=== PATIENT | male | born 1980 | race Caucasian/White ===

== ENCOUNTER 2020-10-20 11:43 | Emergency (ER) | payer OTHER, SELFPAY ==
[2020-10-20] VITALS (43 sets, daily range): BP systolic 100–140; BP diastolic 53–87; PULSE 65–95; RESP 11–25; TEMP 36.7; O2SAT 94–100
--- NOTE | 2020-10-20 11:45 | DI.RAD_ITS ---
EXAM: XR CHEST 2V PA LATERAL CLINICAL HISTORY: Chest pain TECHNIQUE: 2D digital imaging was performed. COMPARISON: No exams were available for comparison FINDINGS: The heart is not enlarged. The lungs are clear and well expanded. No pleural effusion seen. Mediastin al contours appear intact. IMPRESSION: Normal chest. RADIATION DOSE DELIVERED: Total DLP
--- NOTE | 2020-10-20 11:45 | RT.EKG_ITS ---
APPROVED REPORT Exam: Resting ECG Patient Location: E HR:76 bpm ECG Measurements Heart Rate 76 AXIS IA 160 P 23 QRSd 87 QRS 21 QT 362 T 18 QTc 408 Conclusion Sinus rhythm...normal P axis, V-rate 60- 99
--- NOTE | 2020-10-20 12:01 | W.ED.GENAD ---
Discharge Plan Disposition Patient Disposition: HOME Condition: Stable Discharge Details Clinical Impression: Chest pain Primary Care Provider: Unknown,Unknown ED Provider: Johnna Whyte Home Meds and New Rx's Prescriptions: No Action No Known Home Meds RF: 0 Discharge Instructions Instructions: Chest Pain (ED) Additional Instructions: Follow up with primary care provider in 3-5 days. Return to ED sooner if any worsening or concerns. Increase oral fluids. Please take Tylenol or Ibuprofen with food every 4-6 hours as needed for pain and swelling. You may consider taking a chewable baby aspirin daily. You are placed on a care management follow-up list to establish primary care provider they can help you get established and be seen within the next week. Please return to the ER for any worsening chest pain, shortness of breath or any concerns. Discharge Data Discharge Date/Time-TO BE ENTERED AT DEPARTURE: 10/20/20 15:50 Medical Decision Making 40-year-old male presents to the ER chief complaint of left-sided chest pain which began last night. He reports approximately 3-minute episode while sitting at a computer, and then resolved this morning again had another episode of 3 minutes of chest pain followed by some numbness and tingling into his arms and hands. He has no chest pain upon initial exam. He reports heart disease with his paternal grandfather who at age 52. He denies any other family history of heart disease. He is a non-smoker. He denies any illicit drug or alcohol. He does report coming off of a medication which was prescribed by his psychiatrist called kyra for anxiety and his blood pressure last taken on Monday. He denies any other past medical history or medications. Cardiac work-up ordered at this time including serial troponins, chest x-ray 324 mg chewable baby aspirin. Discussed plan of care. EXAM: XR CHEST 2V PA LATERAL CLINICAL HISTORY: Chest pain TECHNIQUE: 2D digital imaging was performed. COMPARISON: No exams were available for comparison FINDINGS: The heart is not enlarged. The lungs are clear and well expanded. No pleural effusion seen. Mediastinal contours appear intact. IMPRESSION: Normal chest. At this time initial work-up is largely within normal limits. Troponin is less than 0.05, patient has no more complaints of chest pain has not had any further episodes while here in department. He does report some tingling in his left arm and hand, however the BP cuff is on that arm, and he is using his cell phone while in room. 1337: Discussed initial work-up with patient who verbalizes understanding. At this time work-up is negative. Shared decision making discussed regarding waiting for the serial troponin patient opted to forego this at this time. I will place him on the care management list for PCP establishment, and order an outpatient stress test. 1400: Verifying with front desk associate that patient would not need a prior approval with insurance for outpatient stress test, this is unable to be verified at this time. Patient does not have an established PCP so I did explain to him that I would feel more comfortable doing the 3-hour troponin and repeat EKG prior to being discharged, he verbalizes understanding and is willing to wait at this point. 1520: Second serial troponin is within normal limits EKG is unchanged patient continues to be chest pain-free during stay. Patient placed on care management list for establishment of primary care provider. Instructed to take a baby aspirin chewable aspirin daily. Verbalizes understanding. Discussed strict return instructions, verbalized understanding. This text was generated using [employer] system, please disregard any oddities of phrase or misspellings. HPI General Mode of arrival: ambulatory. Date/Time Provider Initiated Documentation: 10/20/20 11:46. Limitations to Documentation: no limitations. Information obtained by: patient. HPI Narrative: 40-year-old male presents to the ER chief complaint of left-sided chest pain which began last night. He reports approximately 3-minute episode while sitting at a computer, and then resolved this morning again had another episode of 3 minutes of chest pain followed by some numbness and tingling into his arms and hands. He has no chest pain upon initial exam. He reports heart disease with his paternal grandfather who at age 52. He denies any other family history of heart disease. He is a non-smoker. He denies any illicit drug or alcohol. He does report coming off of a medication which was prescribed by his psychiatrist called kyra for anxiety and his blood pressure last taken on Monday. He denies any other past medical history or medications. Related Data Home Medications Medication Instructions Recorded Confirmed Unknown [No Known Home Meds] 10/20/20 10/20/20 Allergies Allergy/AdvReac Type Severity Reaction Status Date / Time No Known Allergies Allergy Unverified 10/20/20 12:01 General Stated Complaint: Chest Pain CHAU: 2 Review of Systems Narrative: Constitutional: Negative for weight loss, alert and oriented, well groomed, normal body habitus, appears comfortable. HEENT: Denies trauma, headaches, blurry vision, nasal discharge, sore throat, trouble swallowing. Chest: Denies palpitations, irregular rhythm, reports left-sided chest pain which lasted for approximately 3 to 4 minutes. Respiratory: Denies Shortness of breath, cough, hemoptysis. GI: Denies abdominal pain, nausea, vomiting, diarrhea, constipation. : Denies dysuria, hematuria, flank pain, rectal bleeding. Neuro: Denies blurry vision, weakness, syncope, headache or facial numbness. Reports some dizziness with chest pain which has resolved. He also endorses hand and arm tingling which is not new. Hematologic: Denies easy bruising, intolerance to heat or cold, hair loss. FORMERLY [facility], 1928–1983 Social History Smoking/Tobacco Use Status: Never Smoking risk assessment performed?: Yes Substance use type: does not use Exam Narrative Exam Narrative: Constitutional: Alert and oriented x3. Appears stated age. Normal body habitus. Head: Normocephalic, no trauma. Eyes: Pupils PERRLA, Red reflex noted, EOM's intact. Eyelids symmetrical without lesions, discharge, or swelling. ENT: External ear normal to inspection. Chest: Normal sinus rhythm, no ectopy. Resp: Lungs clear to auscultation bilaterally, no wheezes, rales, or rhonchi. Musculoskeletal: Normal gait, 5/5 strength to all four extremities. Skin: No suspicious rashes or lesions. Capillary refill less than 2 sec. Neurologic: Cranial nerves II-XII intact. Alert and oriented x 3. DTR's intact. Hematologic/Lymphatic: No ecchymosis, no lymphadenopathy. Course Vital Signs Vital signs: Vital Signs Temperature 36.7 C 10/20/20 11:54 Pulse 81 10/20/20 11:54 Respiratory Rate 16 10/20/20 11:54 Blood Pressure 140/81 10/20/20 11:54 Pulse Oximetry 97 10/20/20 11:54 Temperature 36.7 C 10/20/20 11:54 Temperature Source Skin 10/20/20 11:54 Pulse 81 10/20/20 11:54 Respiratory Rate 16 10/20/20 11:54 Respiratory Effort Non-Labored 10/20/20 11:54 Blood Pressure 140/81 10/20/20 11:54 Blood Pressure Position Supine 10/20/20 11:54 Pulse Oximetry 97 10/20/20 11:54 Oxygen Delivery Method Room Air 10/20/20 11:54 Oxygen Flow Rate 0 10/20/20 11:54 Pain Level 1 10/20/20 11:54
[2020-10-20] MEDS: Aspirin 81 MG CHEW 324 MG CH (12:07)
[2020-10-20 12:09] LABS: Abs Immature Grans 0.01 10^3/uL (0.0-0.06); Absolute Basophil Count 0.04 10^3/uL (0.0-0.2); Absolute Eosinophil Count 0.08 10^3/uL (0.0-0.7); Absolute Lymphocyte Count 2.34 10^3/uL (1.2-3.4); Absolute Monocyte Count 0.55 10^3/uL (0.1-0.8); Absolute Neutrophil Count 3.89 10^3/uL (1.2-6.7); Basophils % 0.6; Eosinophils % 1.2; HCT 46.2 % (40.0-50.0); HGB 15.1 g/dL (13.5-17.5); Immature Grans % 0.1; Lymphocytes % 33.9; MCH 28.9 pg (27.0-33.0); MCHC 32.7 % (32.0-36.0); MCV 88.5 fL (80-95); MPV 13.6 fL (8.0-11.0); Neutrophils % 56.2; Nucleated RBC 0 %; RBC 5.22 10^6/uL (4.36-5.78); RDW 12.6 % (11.8-14.1); RDW-SD 40.8 fL; WBC 6.91 10^3/uL (4.4-10.8)
[2020-10-20 12:25] LABS: ALT 35 U/L (16-63); AST 12 U/L (15-37); Albumin 4.4 g/dL (3.4-5.0); Alkaline Phosphatase 72 U/L (46-116); Anion Gap 8.2 mmol/L (3-11); BUN 12 mg/dL (7-18); Bilirubin, Total 0.5 mg/dL (0.2-1.0); CO2 27.8 mmol/L (21.0-32.0); Calcium 9.1 mg/dL (8.5-10.1); Chloride 102 mmol/L (98-107); Glucose 97 mg/dL (74-106); Magnesium 2.2 mg/dL (1.8-2.4); Potassium 4.2 mmol/L (3.5-5.1); Sodium 138 mmol/L (136-145); Total Protein 8.2 g/dL (6.4-8.2)
[2020-10-20 12:29] LABS: Troponin I < 0.05 ng/mL (<0.06)
[2020-10-20 12:41] LABS: Diff Comment Diff Reviewed; Platelet Count 162 10^3/uL (130-400); RBC Morphology Normal
--- NOTE | 2020-10-20 13:41 | NUR.NOTE ---
Nursing Note: Referral to establish care/PCP/ for chest pain given to Care Management. Stress test ordered and faxed to DI. Renata Aponte
--- NOTE | 2020-10-20 15:00 | RT.EKG_ITS ---
APPROVED REPORT Exam: Resting ECG Patient Location: E HR:74 bpm ECG Measurements Heart Rate 74 AXIS AK 152 P 26 QRSd 93 QRS 28 QT 385 T 34 QTc 428 Conclusion Sinus rhythm...normal P axis, V-rate 60- 99 Physician: I have reviewed and interpreted ECG and agree with software generated interpretation. Otherwise normal ECG
[2020-10-20 15:28] LABS: Troponin I < 0.05 ng/mL (<0.06)
== END 2020-10-20 15:50 | disposition home or self-care (01) ==
PROVIDERS: Emergency Provider Registered Nurse Emergency
DX: R07.9 Chest pain, unspecified (principal)
CPT/HCPCS: 36415; 80053; 87635; 93005; 99284; 71046; 83735; 84484; 85025; 93010

== ENCOUNTER 2024-09-18 18:25 | Observation (INO) | payer SELFPAY ==
[2024-09-18] VITALS (42 sets, daily range): BP systolic 106–142; BP diastolic 56–83; PULSE 90–142; RESP 15–28; TEMP 37.2–37.9; O2SAT 94–98; BMI 32.4
--- NOTE | 2024-09-18 18:30 | RT.EKG_ITS ---
APPROVED REPORT Exam: Resting ECG Reason for Exam: tachycardia Patient Location: E HR:131 bpm ECG Measurements Heart Rate 131 AXIS DC 151 P 23 QRSd 83 QRS 43 QT 295 T 66 QTc 435 Conclusion Sinus tachycardia...rate> 99
--- NOTE | 2024-09-18 18:45 | DI.CT_ITS ---
Exam(s) CT ABDOMEN PELVIS W EXAM: CT ABDOMEN PELVIS W CLINICAL HISTORY: rlq pain, fever. TECHNIQUE: Imaging Protocol: Axial computed tomography images with coronal and sagittal reformatted images were created and reviewed CONTRAST MATERIAL: Intravenous: Omnipaque-350 100cc Oral: None COMPARISON: No exams were available for comparison FINDINGS: VISUALIZED LUNG BASES: No nodules nor pleural effusions evident. ABDOMEN: There is no ascites. LIVER: Mild hepatic steatosis. There are no focal hepatic lesions evident. No dilated intrahepatic ducts. GALLBLADDER/BILIARY: No obvious gallbladder pathology. CBD is not dilated. PANCREAS: No evidence of pancreatic mass nor dilatation of the pancreatic duct. SPLEEN: Spleen is not enlarged. No obvious intrasplenic lesions. Splenic and portal veins are paten t. ADRENALS: There are no significant adrenal masses. KIDNEYS:Right kidney unremarkable. There is mild dilatation of the left renal pelvis and infundibuli . There may be a punctate calculus in the upper left ureter (series 8/image 45). The ureter is not dilated. Incidentally noted is a small fat density 4 millimeter benign lesion left kidney which is p robably a tiny angiomyolipoma. Below this is a slightly larger benign 6 mm cortical cyst. ABDOMINAL AORTA: Abdominal aorta is not enlarged. LYMPH NODES:There is no retroperitoneal nor paraaortic adenopathy. ABDOMINAL WALL: No evidence of significant anterior abdominal wall nor inguinal hernia. GI: There is no evidence of bowel obstruction, free air, nor abscess. PELVIS: GI: The appendix is edematous and exhibits some periappendiceal streaking consistent with acute appen dicitis. There is no calcified appendicolith.No perforation. No abscess.No evidence of sigmoid dive rticulitis. LYMPH NODES: There is no intrapelvic nor inguinal adenopathy. REPRODUCTIVE: Prostate size upper normal. URINARY BLADDER: No calculi nor obvious masses evident OSSEOUS: No fractures and no significant osseous lesions. There are bilateral pars interarticularis defects at L5 level. No listhesis. IMPRESSION: 1. The main acute finding here is acute appendicitis, as described above. There is no evidence of pe rforation nor abscess at this time. 2. There is mild left kidney pelvicaliectasis of uncertain etiology. On 1 image there is a subtle pulido ggestion of a tiny punctate calculus in the upper left ureter. Other possibility is element of UPJ o bstruction. There is also slight possibly that there are parapelvic cysts here mimicking hydronephro sis. Recommend urology follow-up. CT urogram will be able to differentiate parapelvic cysts from tr ue hydronephrosis RADIATION DOSE DELIVERED: 627.81mGy.cm Total DLP DATA REPOSITORY: All CT scans at this facility are submitted to the National Radiology Data Registry (NRDR) Dose Index Registry (DIR) with the [employer] (ACR). RADIATION OPTIMIZATION: All CT scans at this facility use at least one of these dose optimization te chniques: automated exposure control; mA and/or kV adjustment per patient size (includes targeted exa ms where dose is matched to clinical indication); or iterative reconstruction.
[2024-09-18 18:58] LABS: HCT 43.2 % (40.0-50.0); HGB 14.2 g/dL (13.5-17.5); MCH 28.6 pg (27.0-33.0); MCHC 32.9 % (32.0-36.0); MCV 87 fL (80-95); RBC 4.97 10^6/uL (4.36-5.78); RDW 12.5 % (11.8-14.1); RDW-SD 39.3 fL; WBC 7.58 10^3/uL (4.4-10.8)
[2024-09-18 19:00] LABS: Lactate 1.7 mmol/L (<or=2.0)
[2024-09-18] MEDS: ACETAMINOPHEN 1,000 MG/100 ML BAG 400 MG IVPB (19:00)
[2024-09-18] MEDS: Normal Saline 1,000 ML 1000 ML IV (19:00)
[2024-09-18 19:16] LABS: Platelet Count 125 10^3/uL (130-400)
[2024-09-18 19:17] LABS: Absolute Basophil Count 0.08 10^3/uL (0.0-0.2); Absolute Eosinophil Count 0.08 10^3/uL (0.0-0.7); Absolute Lymphocyte Count 1.14 10^3/uL (1.2-3.4); Absolute Monocyte Count 0.68 10^3/uL (0.1-0.8); Absolute Neutrophil Count 5.61 10^3/uL (1.2-6.7); Atypical Lymphocytes % 2 %; Bands % 1 %; Diff Comment Manual Differential; RBC Morphology Normal
[2024-09-18 19:24] LABS: ALT 43 U/L (16-63); AST 9 U/L (15-37); Alkaline Phosphatase 85 U/L (46-116); Anion Gap 5.7 mmol/L (3-11); BUN 12 mg/dL (7-18); Bilirubin, Total 0.35 mg/dL (0.2-1.0); C-Reactive Protein 5.17 mg/dL (<or=0.5); CO2 28.3 mmol/L (21.0-32.0); CREATININE 1.1 mg/dL (0.70-1.30); Calcium 9.3 mg/dL (8.5-10.1); Chloride 107 mmol/L (98-107); Estimated GFR 85.95 (mL/min/1.73m2); Glucose 140 mg/dL (74-106); Potassium 3.8 mmol/L (3.5-5.1); Sodium 141 mmol/L (136-145); Total Protein 7.3 g/dL (6.4-8.2)
[2024-09-18 19:34] LABS: COVID-19 PCR Negative (Negative); Influenza A PCR Negative (Negative); Influenza B PCR Negative (Negative); RSV PCR Negative (Negative)
[2024-09-18] MEDS: Omnipaque 350 MG/ML 100 ML BTL IJ (19:34)
[2024-09-18] MEDS: Normal Saline - Diluent 50 ML VIAL IJ (19:36)
[2024-09-18 19:38] LABS: Source Nasopharynx
--- NOTE | 2024-09-18 20:10 | DI.VRAD_ITS ---
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 Addendum created by Luigi Mena MD on 09/18/2024 8:12:16 PM EST: COMMENT: THIS REPORT CONTAINS FINDINGS THAT MAY BE CRITICAL TO PATIENT CARE. The exam findings were verbally communicated by me to Bertha Carvajal via telephone conference at 8:12 PM EST on 09/18/2024. The findings were acknowledged and understood. Initial report created on 09/18/2024 8:10:13 PM EST: PROCEDURE INFORMATION: Exam: CT Abdomen And Pelvis With Contrast Exam date and time: 09/18/2024 7:27 PM Age: 44 years old Clinical indication: Other: Rlq pain, fever TECHNIQUE: Imaging protocol: Computed tomography of the abdomen and pelvis with contrast. Contrast material: OMNIPAQUE 350; Contrast volume: 100 ml; Contrast route: INTRAVENOUS (IV); COMPARISON: CR XR CHEST 2V PA LATERAL 10/20/2020 12:16 PM FINDINGS: Liver: Fatty infiltration of the liver. Gallbladder and biliary ducts: Normal. No calcified stones. No ductal dilation. Pancreas: Normal. No ductal dilation. Spleen: Normal. No splenomegaly. Adrenal glands: Normal. No mass. Kidneys and ureters: Mild left-sided hydronephrosis of uncertain etiology. Stomach and bowel: Unremarkable. No obstruction. No mucosal thickening. Appendix: Edematous appendix with periappendiceal inflammation and edema consistent with acute appendicitis. Intraperitoneal space: Unremarkable. No free air. No significant fluid collection. Vasculature: Unremarkable. No abdominal aortic aneurysm. Lymph nodes: Unremarkable. No enlarged lymph nodes. Urinary bladder: Unremarkable as visualized. Reproductive: Prostate gland is prominent measuring 4.5 cm by 3.8 cm. Bones/joints: Unremarkable. No acute fracture. Soft tissues: Small umbilical hernia. IMPRESSION: 1. Acute appendicitis. 2. Mild left-sided pelvicaliectasis of uncertain etiology. 3. Fatty infiltration of the liver. 4. Small umbilical hernia. Dictated and Authenticated by: Luigi Mena MD. Orderin Wei Stone MD
--- NOTE | 2024-09-18 21:24 | HPE_ITS ---
Date of service: 09/18/24 Time of Service: 21:24 Assessment and Plan Assessment and plan (1) Acute appendicitis: Status: Acute Assessment and plan: The history of abdominal pain that migrated to the right lower quadrant with associated loss of appetite and nausea is certainly consistent with acute appendicitis. And I do think that the CAT scan supports that diagnosis. We talked about the nature of appendicitis, and various treatment options. I think appendectomy is probably the most reasonable course of action for Mohan. We talked about the risks of the surgery, and I think he has a very good understanding of this. He was able to provide informed consent, we will make arrangements to proceed with appendectomy as soon as possible. History of Present Illness History of Present Illness Chief Complaint: Abdominal pain Narrative: Mohan is 44 years old. Yesterday he noticed some diffuse mild abdominal pain. Over the course of about 24 hours it slowly migrated to the right lower quadrant. Today, he became more intense, and he noticed that his watch was alarming for heart rate greater than 120. Not long afterwards he started to feel nauseous, with stabbing pain in the right lower quadrant. He came to the emergency department, was tachycardic with a normal blood pressure. Labs were all within normal limits, but he did undergo a CT scan that confirmed the diagnosis of acute appendicitis. He has no significant contributing past medical history. He denies any significant family medical history. He is never had any anesthesia before. Review of Systems Constitutional Constitutional: Reports fatigue, Reports fever(s) and Reports poor appetite Eyes Eyes: Reports system reviewed and no additional complaints, except as documented ENT Ears, Nose, Mouth, and Throat: Reports system reviewed and no additional complaints, except as documented Cardiovascular Cardiovascular: Denies chest pain and Denies dyspnea Respiratory Respiratory: Denies chest congestion, Denies cough and Denies dyspnea Gastrointestinal Gastrointestinal: Reports abdominal pain, Reports nausea and Denies vomiting Genitourinary Genitourinary: Reports system reviewed and no additional complaints, except as documented Musculoskeletal Musculoskeletal: Reports system reviewed and no additional complaints, except as documented Neurologic Neurologic: Reports system reviewed and no additional complaints, except as documented Psychiatric Psychiatric: Reports system reviewed and no additional complaints, except as documented Endocrine Endocrine: Reports fatigue Hematologic/Lymphatic Hematologic/Lymphatic: Denies easy bleeding and Denies easy bruising PFSH All Active Problems (Updated 09/18/24 @ 21:57 by Jc Garner MD) Acute appendicitis (Acute) Chest pain (Acute) Social History Smoking/Tobacco Use Status: Never Smoking risk assessment performed?: Yes Alcohol Intake: current Alcohol Intake frequency: a few times a week Substance use type: does not use Do you feel safe at home: Yes Do you feel safe in your relationship?: Yes Meds Allergies and Home Medications Allergies Allergy/AdvReac Type Severity Reaction Status Date / Time No Known Allergies Allergy Unverified 09/18/24 20:16 Home Medications ?Medication ?Instructions ?Recorded ?Confirmed ?Type amitriptyline 25 mg tablet 25 mg PO DAILY 09/18/24 09/18/24 History sertraline 100 mg tablet 200 mg PO DAILY 09/18/24 09/18/24 History Exam Const General: cooperative, comfortable and no acute distress Orientation: alert, awake and oriented x3 HENMT Head: normal to inspection Eyes General: appearance normal, both eyes and all related structures Neck Neck: normal visual inspection, full ROM and no lymphadenopathy Resp Effort & Inspection: no cough Auscultation: clear to auscultation bilaterally Cardio Rate: regular rate Rhythm: regular rhythm Heart Sounds: S1 normal and S2 normal GI Inspection: non-distended Palpation: soft, no guarding and tender (Right lower quadrant) Percussion: normal to percussion Skin General skin exam: no rashes or lesions noted Extrem Right lower extremity: no cyanosis and no edema Left lower extremity: no cyanosis and no edema Results Imaging Abdomen CT scan report/results: report reviewed and image reviewed CT scan - pelvis: report reviewed and image reviewed Labs 09/18/24 18:48 09/18/24 18:48 Labs: Laboratory Results - last 24 hr 09/18/24 09/18/24 18:45 18:48 WBC 7.58 RBC 4.97 Hgb 14.2 Hct 43.2 MCV 87 MCH 28.6 MCHC 32.9 RDW 12.5 Plt Count 125 L MPV Immature Gran % 0.0 Neutrophils % 73.0 Band Neutrophils % 1 Lymphocytes % 13.0 Atypical Lymphs % 2 Monocytes % 9.0 Eosinophils % 1.0 Basophils % 1.0 Nucleated RBC % 0.0 Absolute Neutrophils 5.61 Absolute Lymphocytes 1.14 L Absolute Monocytes 0.68 Absolute Eosinophils 0.08 Absolute Basophils 0.08 RBC Morphology Normal VBG Lactate 1.7 Sodium 141 Potassium 3.8 Chloride 107 Carbon Dioxide 28.3 Anion Gap 5.7 BUN 12 Creatinine 1.1 Est GFR (CKD-EPI 2020) 85.95 Glucose 140 H Calcium 9.3 Total Bilirubin 0.35 AST 9 L ALT 43 Alkaline Phosphatase 85 C-Reactive Protein 5.17 H Total Protein 7.3 Albumin 4.0 COVID-19 Source Nasopharynx SARS-CoV-2 (PCR) Negative Influenza Type A (PCR) Negative Influenza Type B (PCR) Negative RSV (PCR) Negative Last Vital Signs Temp 98.9 F 09/18/24 20:28 Pulse 105 H 09/18/24 20:40 Resp 17 09/18/24 20:40 BP 124/56 L 09/18/24 20:31 Pulse Ox 96 09/18/24 20:40 Time Spent Time spent with Patient: 40-54 minutes Time was spent: preparing to see the patient(eg.review tests), obtaining and/or reviewing separately otained hiistory, referring, communicating with other health home health care respiratory therapist, indepentently interpreting results, counseling the patient and care coordination
--- NOTE | 2024-09-18 21:43 | ED.GENADUL_ITS ---
Discharge Plan Discharge Details Chief Complaint: Abd Prob Primary Care Provider: Sima Love ED Provider: Bertha Carvajal Home Meds and New Rx's Prescriptions: No Action amitriptyline 25 mg tablet 25 mg PO DAILY Patient Comments: TAKE ONE TABLET BY MOUTH AT BEDTIME sertraline 100 mg tablet 200 mg PO DAILY Patient Comments: TAKE TWO TABLETS BY MOUTH EVERY DAY HPI General Date/Time Provider Initiated Documentation: 09/18/24 18:39 . HPI Narrative: The patient is a 44-year-old male with a history of depression who presents with a report of right lower quadrant abdominal pain with fever. The abdominal pain reportedly started yesterday evening. He has some insomnia since last night. He states he has had some anorexia, although he did have dinner at about 1700 hours today, consisting of 2 cups of soup. He does not endorse any chest pain, shortness of breath, cough, nausea, or vomiting. Related Data Home Medications ?Medication ?Instructions ?Recorded ?Confirmed amitriptyline 25 mg tablet 25 mg PO DAILY 09/18/24 09/18/24 sertraline 100 mg tablet 200 mg PO DAILY 09/18/24 09/18/24 Allergies Allergy/AdvReac Type Severity Reaction Status Date / Time No Known Allergies Allergy Unverified 09/18/24 20:16 General Stated Complaint: Abd Prob CHAU: 2 Exam Narrative Exam Narrative: General Appearance: Patient is alert and oriented, in no acute distress. Vital signs: Within normal limits. HEENT: Within normal limits. Respiratory: Within normal limits. Cardiovascular: Sinus tachycardia Gastrointestinal: There is tenderness at McBurney's point in the gastrointestinal area without focal peritonitis. Back, Musculoskeletal: Skin: Warm and dry, no rash. Neurological: Normal. Course Vital Signs Vital signs: Vital Signs Temperature 37.9 C H 09/18/24 18:31 Pulse 142 H 09/18/24 18:31 Respiratory Rate 15 09/18/24 18:31 Blood Pressure 136/78 09/18/24 18:31 Pulse Oximetry 95 09/18/24 18:31 Temperature 37.2 C 09/18/24 20:28 Temperature Source Oral 09/18/24 20:28 Pulse 109 H 09/18/24 21:20 Pulse 112 H 09/18/24 21:20 Respiratory Rate 18 09/18/24 21:20 Blood Pressure 127/83 09/18/24 21:16 Blood Pressure Mean 95 09/18/24 21:16 Blood Pressure Position Sitting 09/18/24 18:31 Pulse Oximetry 98 09/18/24 21:20 Oxygen Delivery Method Room Air 09/18/24 18:31 Oxygen Flow Rate 0 09/18/24 18:31 Lab/Test Results Lab/Test Results: 09/18/24 18:48 Blood Blood Culture - Pending 09/18/24 18:50 Blood Blood Culture - Pending Laboratory Tests Range/Units 09/18/24 09/18/24 18:45 18:48 WBC (4.4-10.8) 10^3/uL 7.58 RBC (4.36-5.78) 10^6/uL 4.97 Hgb (13.5-17.5) g/dL 14.2 Hct (40.0-50.0) % 43.2 MCV (80-95) fL 87 MCH (27.0-33.0) pg 28.6 MCHC (32.0-36.0) % 32.9 RDW (11.8-14.1) % 12.5 Plt Count (130-400) 10^3/uL 125 L MPV (8.0-11.0) fL Immature Gran % % 0.0 Neutrophils % % 73.0 Band Neutrophils % % 1 Lymphocytes % % 13.0 Atypical Lymphs % % 2 Monocytes % % 9.0 Eosinophils % % 1.0 Basophils % % 1.0 Nucleated RBC % (0.0-0.3) % 0.0 Absolute Neutrophils (1.2-6.7) 10^3/uL 5.61 Absolute Lymphocytes (1.2-3.4) 10^3/uL 1.14 L Absolute Monocytes (0.1-0.8) 10^3/uL 0.68 Absolute Eosinophils (0.0-0.7) 10^3/uL 0.08 Absolute Basophils (0.0-0.2) 10^3/uL 0.08 RBC Morphology Normal VBG Lactate (<or=2.0) mmol/L 1.7 Sodium (136-145) mmol/L 141 Potassium (3.5-5.1) mmol/L 3.8 Chloride (98-107) mmol/L 107 Carbon Dioxide (21.0-32.0) mmol/L 28.3 Anion Gap (3-11) mmol/L 5.7 BUN (7-18) mg/dL 12 Creatinine (0.70-1.30) mg/dL 1.1 Est GFR (CKD-EPI 2020) (mL/min/1.73m2) 85.95 Glucose (74-106) mg/dL 140 H Calcium (8.5-10.1) mg/dL 9.3 Total Bilirubin (0.2-1.0) mg/dL 0.35 AST (15-37) U/L 9 L ALT (16-63) U/L 43 Alkaline Phosphatase (46-116) U/L 85 C-Reactive Protein (<or=0.5) mg/dL 5.17 H Total Protein (6.4-8.2) g/dL 7.3 Albumin (3.4-5.0) g/dL 4.0 COVID-19 Source Nasopharynx SARS-CoV-2 (PCR) (Negative) Negative Influenza Type A (PCR) (Negative) Negative Influenza Type B (PCR) (Negative) Negative RSV (PCR) (Negative) Negative Medical Decision Making Laboratory Studies Leukocytosis is not present. CRP of 5. Glucose of 140. Lactate within normal limits. Imaging CT abdomen and pelvis shows acute appendicitis. Initial Assessment: 44-year-old male with a history of depression presents with right lower quadrant abdominal pain and fever starting yesterday evening. Reports insomnia since last night and some anorexia, though he had 2 cups of soup at 1700 hours today. Denies chest pain, shortness of breath, cough, nausea, or vomiting. Alert and oriented, in no acute distress. McBurney's point tenderne ss without focal peritonitis. Sinus tachycardia present. Leukocytosis not present. CRP 5, glucose 140, lactate within normal limits. Urinalysis pending. CT abdomen and pelvis shows acute appendicitis, confirmed by radiologist Dr. Lantigua. ED Course: - Patient resting comfortably in room. - Received Tylenol, Zosyn, and 1 L of fluid. - Declined opiates and has no additional needs. - Remained n.p.o. since 1700 hours. - Case discussed with Dr. Garner, who will take patient to the OR. - Patient made aware of plan, pending transfer to OR and hospital admission. Final Assessment: Acute appendicitis confirmed by CT and radiologist. Patient treated with Tylenol, Zosyn, and fluids. Pending transfer to OR for surgery and hospital admission. Clinical Impression: - Acute appendicitis Disposition: - Admission: Pending transfer to OR and hospital admission. Quality:SDOH Health Related Social Needs: No Data to Display PFSH All Active Problems (Updated 10/20/20 @ 13:43 by Johnna Whyte NP) Chest pain (Acute) Social History Smoking/Tobacco Use Status: Never Smoking risk assessment performed?: Yes Alcohol Intake: current Alcohol Intake frequency: a few times a week Substance use type: does not use Do you feel safe at home: Yes Do you feel safe in your relationship?: Yes
--- NOTE | 2024-09-18 22:06 | ANES.PREOP_ITS ---
General Info Date of Service Date Performed: 09/18/24 Height: 5 ft 5 in Weight: 88.451 kg Body Mass Index (BMI): 32.4 Surgical Procedure: Operation Date: 09/18/24 22:30 Proposed Procedure Side Surgeon p Appendectomy Laparoscopic Jc Garner MD Meds Allergies and Home Medications Allergies Allergy/AdvReac Type Severity Reaction Status Date / Time No Known Allergies Allergy Unverified 09/18/24 20:16 Home Medication ?Medication ?Instructions ?Recorded amitriptyline 25 mg tablet 25 mg PO DAILY 09/18/24 sertraline 100 mg tablet 200 mg PO DAILY 09/18/24 Current Visit Medications: Current Medications Generic Name Dose Route Start Last Admin Trade Name Freq PRN Reason Stop Dose Admin Iohexol 100 ml 09/18/24 19:45 09/18/24 19:34 Omnipaque 350 Mg/Ml 100 Ml Btl IJ 10/18/24 23:59 100 ml DIRECTED THOR Administration Sodium Chloride 50 ml 09/18/24 19:45 09/18/24 19:36 Normal Saline - Diluent 50 Ml Vial IJ 50 ml .FOR DI USE THOR Administration PFSH Active Problems Active Problems: Problem Status Onset Code Acute appendicitis Acute K35.80 Chest pain Acute R07.9 Tobacco Smoking/Tobacco Use Status: Never Alcohol Alcohol Intake: current Alcohol intake frequency: a few times a week Substance Use Substance use type: does not use Vital Signs and Lab Results Vital Signs Most Recent Vital Signs in EMR: Most Recent Vital Signs Temp Pulse Resp BP Pulse Ox 37.2 C 109 H 18 127/83 98 09/18/24 20:28 09/18/24 21:20 09/18/24 21:20 09/18/24 21:16 09/18/24 21:20 Lab Results 09/18/24 18:48 09/18/24 18:48 Blood Type / Crossmatch: 2 No Data to Display Complete Blood Count: 2 White Blood Count 7.58 10^3/uL (4.4-10.8) 09/18/24 18:48 Red Blood Count 4.97 10^6/uL (4.36-5.78) 09/18/24 18:48 Hemoglobin 14.2 g/dL (13.5-17.5) 09/18/24 18:48 Hematocrit 43.2 % (40.0-50.0) 09/18/24 18:48 Platelet Count 125 10^3/uL (130-400) L 09/18/24 18:48 Venous Blood Lactate 1.7 mmol/L (<or=2.0) 09/18/24 18:48 Complete Metabolic Panel: 2 Sodium 141 mmol/L (136-145) 09/18/24 18:48 Potassium 3.8 mmol/L (3.5-5.1) 09/18/24 18:48 Chloride 107 mmol/L (98-107) 09/18/24 18:48 Carbon Dioxide 28.3 mmol/L (21.0-32.0) 09/18/24 18:48 BUN 12 mg/dL (7-18) 09/18/24 18:48 Creatinine 1.1 mg/dL (0.70-1.30) 09/18/24 18:48 Est GFR (CKD-EPI 2020) 85.95 (mL/min/1.73m2) 09/18/24 18:48 Calcium 9.3 mg/dL (8.5-10.1) 09/18/24 18:48 Albumin 4.0 g/dL (3.4-5.0) 09/18/24 18:48 Glucose 140 mg/dL (74-106) H 09/18/24 18:48 C-Reactive Protein 5.17 mg/dL (<or=0.5) H 09/18/24 18:48 Liver Function Panel: 2 Alanine Aminotransferase (ALT/SGPT) 43 U/L (16-63) 09/18/24 18: 48 Aspartate Amino Transf (AST/SGOT) 9 U/L (15-37) L 09/18/24 18:4 8 Coagulation Panel: 2 No Data to Display Cardiac Panel: 2 No Data to Display Arterial Blood Gas: 2 No Data to Display Venous Blood Gas: 2 No Data to Display Pancreas Panel: 2 No Data to Display Thyroid Panel: 2 No Data to Display Infectious Disease: 2 Coronavirus (COVID-19)(PCR) Negative (Negative) 09/18/24 18:45 Coronavirus 2019 Source Nasopharynx 09/18/24 18:45 Influenza Virus Type A (PCR) Negative (Negative) 09/18/24 18:4 5 Influenza Virus Type B (PCR) Negative (Negative) 09/18/24 18:4 5 Respiratory Syncytial Virus (PCR) Negative (Negative) 09/18/24 18:45 Blood Cultures: 2 No Data to Display Toxicology Panel: 2 No Data to Display Anesthesia Assessment and Plan Anesthesia History Personal History: No History of General Anesthesia Family History: No Family History of Anesthesia Complications Exercise Tolerance Exercise Tolerance: Metabolic Equivalents>4 Pertinent Negatives Pertinent Negatives: No Symptoms of GERD Cardiac & Pulmonary Exam Cardiac Exam: Normal S1/S2 Heart Sounds Pulmonary Exam: Clear Bilateral Breath Sounds Implantable Cardiac Device Does patient have a Pacemaker or an ICD?: No Airway Exam Known Difficult Airway: No Mallampati Class: 2 Mouth Opening: Normal (> 3cm) Thyromental Distance: Greater than 3 cm Neck Range of Motion: Full ROM Neck Circumference: Normal Teeth Condition: Normal Dentition ASA Classification ASA Score: ASA 2 Emergency Case?: No NPO Status NPO Status: NPO Clears >2 hours, Solids >8 hours Anesthesia Plan Resuscitation Status: Full Code Anesthesia Technique: General Anesthesia Airway Planned: Endotracheal Tube Monitors Used: Standard Monitors and SedLine
[2024-09-18] MEDS: Lactated Ringers 1,000 ML 75 ML IV (22:53)
--- NOTE | 2024-09-18 23:35 | APP_PTH ---
PATIENT: Mohan Tripp LOC: U#:[id number] AGE/SX: 44/M ROOM: 214 RE09/19/[address]: Jc Garner MD : 1980 BED: A DIS: 09/19/2024 SPEC #: [id number] RECD: 09/19/24 13:00 STATUS: REBEKAH PETERSON #: [id number] NATALEE: 09/18/24 23:[address]: Jc Garner DEPT: Surgical Specimen RECD BY: Bertha Rocha ENTERED: 09/19/24 13:00 SP TYPE: Appendix OTHR DR: Sima Love Tissues: 1 - APPENDIX NOT INCIDENTAL Procedures: GROSS AND MICRO LEVEL 3 Comments: [id number]
[2024-09-18] MEDS: Bupivacaine 0.25% Pres-Free W/EPI 30 ML VIAL (23:47)
--- NOTE | 2024-09-18 23:57 | ROE_ITS ---
Operative Note Operative Note PRE-OP DIAGNOSIS: Acute appendicitis POST-OP DIAGNOSIS: same PROCEDURE: Laparoscopic appendectomy SURGEON: Jc Garner FOOD OPERATIONS MANAGER: Anival Johnson ANESTHESIA TYPE: General LMA/ETT Refer to Anesthesia Record ESTIMATED BLOOD LOSS: 25 PATHOLOGY: other (Appendix) COMPLICATIONS: None Patient was transported to: PACU Patient's condition: stable Indications: Juan R is a 44-year-old male with right lower quadrant pain, and CT findings consistent with acute appendicitis Findings: Acute appendicitis Procedure Description: After the induction of general anesthesia, a Escoto urinary catheter was inserted using aseptic technique. Next, I prepped and draped the anterior abdominal wall in the usual fashion. I established a field block in the area of the umbilicus, made a small skin incision and dissected down to the fascia. A 5 mm optical viewing port was used to gain entry to the peritoneum under the direct vision of the scope. Pneumoperitoneum was established. 5 mm 30 degree scope was reintroduced and the underlying viscera was examined. It was all clean and heal thy, with no evidence of any trauma from entry. I placed another 5 mm port in the left lower quadrant, then placed a 12 mm port in the suprapubic position. I then moved the scope into the left lower quadrant, and positioned the patient with some Trendelenburg and left side down. I started by examining the area of the right lower quadrant. I reflected the greater omentum cephalad and identified the terminal ileum. There was some inflammation of the sale of Treves as it was adherent to the underlying appendix. This was gently mobilized and reflected medially which exposed the acutely inflamed appendix. There was some seropurulent fluid adjacent to the appendix, without evidence of discrete perforation. The appendix was elevated towards the anterior abdominal wall, and I then used sequential firings of the LigaSure to divide the mesoappendix. Once this was complete I divided the appendix from the cecum at its base with a AURORA stapler. I placed the appendix into an Endo Catch bag. I examined the surgical field. The staple line looked fine. There was no contamination or spillage and the surgical field was hemostatic. The staple line looked healthy. I did irrigate away some of the seropurulent fluid in the right lower quadrant. He was observed for several minutes. There was no other accumulation of fluid. The suprapubic port was removed, as was the Endo Catch bag through this site. This was replaced with a Matt Valverde wound closure device, and I reapproximated this fascia with 0 Vicryl stitches. I then removed the left lower quadrant port under the vision the laparoscope. This was hemostatic. Pneumoperitoneum was evacuated, and the remaining 5 mm umbilical port was removed. Finally, I irrigated the skin and approximated the dermis with subcuticular absorbable sutures. Band-Aids were applied, the catheter was removed, and the patient was allowed awaken from the anesthetic, extubated, and transferred to the recovery unit. Date of Procedure: 09/18/24
[2024-09-19] VITALS (9 sets, daily range): BP systolic 94–117; BP diastolic 59–78; PULSE 76–93; RESP 14–18; TEMP 32.4–36.7; O2SAT 92–96
--- NOTE | 2024-09-19 00:26 | W.ANESPOSTOP ---
Postoperative Evaluation Date, Time and Location Date Performed: 09/19/24 Time Performed: 00:26 Patient Location: PACU Vital Signs Most Recent Imported Vital Signs: Most Recent Vital Signs Temp Pulse Resp BP Pulse Ox 36.7 C 76 16 98/69 L 96 09/19/24 00:10 09/19/24 00:20 09/19/24 00:20 09/19/24 00:20 09/19/24 00:20 Assessment Mental Status: Arousable with meaningful communication Airway and Respiratory Function: Patent airway with normal (patient baseline) respiratory exam Cardiovascular Function: Hemodynamically Stable Hydration Status: Adequately Hydrated Nausea & Vomiting: No Nausea or Vomiting Pain: Pt. Denies Any Pain Peripheral Nerve Block: Patient did not receive a nerve block
--- NOTE | 2024-09-19 01:04 | W.PC.ACHO ---
Registration Status: Primary Language: Preferred Language: ED Information & Data Chief Complaint Abd Prob 09/18/24 21:45 Triage Note 3 of 10 throbbing pain in 09/18/24 18:31 lower R abd quad. 100.3 fever. pain started yesterday evening, difficulty sleeping last night. still has appendix. chills body aches since noon . Most Recent Vital Signs Temperature 36.5 C 09/19/24 00:56 Temperature Source Tympanic 09/19/24 00:56 Pulse 83 09/19/24 00:56 Pulse Rhythm Regular 09/19/24 00:39 Pulse 90 09/18/24 22:31 Respiratory Rate 14 09/19/24 00:56 Respiratory Effort Normal, Non-Labored 09/19/24 00:39 Respiratory Depth Normal 09/19/24 00:39 Respiratory Pattern Normal 09/19/24 00:39 Blood Pressure 94/59 L 09/19/24 00:56 Blood Pressure Mean 80 09/18/24 22:30 Blood Pressure Position Sitting 09/18/24 18:31 Pulse Oximetry 92 09/19/24 00:56 Respiratory End-tidal CO2 32 09/19/24 00:25 Oxygen Delivery Method Room Air 09/19/24 00:56 Oxygen Flow Rate 0 09/19/24 00:56 Allergies No Known Allergies Allergy (Unverified 09/18/24 20:16) Precautions Isolation Standard precaution 09/18/24 18:52 Active Medications Generic Name Dose Route Start Last Admin Trade Name Freq PRN Reason Stop Dose Admin Ringer's Solution 1,000 mls @ 75 mls/hr 09/18/24 23:45 09/18/24 23:56 IV 75 mls/hr INFUSION THOR Infusion Iohexol 100 ml 09/18/24 19:45 09/18/24 19:34 Omnipaque 350 Mg/Ml 100 Ml Btl IJ 10/18/24 23:59 100 ml DIRECTED THOR Administration Sodium Chloride 50 ml 09/18/24 19:45 09/18/24 19:36 Normal Saline - Diluent 50 Ml Vial IJ 50 ml .FOR DI USE THOR Administration IV IV Catheter Type [Right Wrist] Saline Lock IV Catheter Type [Right Peripheral IV Antecubital] IV Catheter Gauge [Right Wrist 18 ] IV Catheter Gauge [Right 18 Antecubital] Diet Orders Category Date Time Status Regular/Normal [DIET] Nutrition 09/19/24 Breakfast Active Diagnostics 09/18/24 09/18/24 Range/Units 18:48 18:45 WBC 7.58 (4.4-10.8) 10^3/uL RBC 4.97 (4.36-5.78) 10^6/uL Hgb 14.2 (13.5-17.5) g/dL Hct 43.2 (40.0-50.0) % MCV 87 (80-95) fL MCH 28.6 (27.0-33.0) pg MCHC 32.9 (32.0-36.0) % RDW 12.5 (11.8-14.1) % Plt Count 125 L (130-400) 10^3/uL MPV (8.0-11.0) fL Immature Gran % 0.0 % Neutrophils % 73.0 % Band Neutrophils % 1 % Lymphocytes % 13.0 % Atypical Lymphs % 2 % Monocytes % 9.0 % Eosinophils % 1.0 % Basophils % 1.0 % Nucleated RBC % 0.0 (0.0-0.3) % Absolute Neutrophils 5.61 (1.2-6.7) 10^3/uL Absolute Lymphocytes 1.14 L (1.2-3.4) 10^3/uL Absolute Monocytes 0.68 (0.1-0.8) 10^3/uL Absolute Eosinophils 0.08 (0.0-0.7) 10^3/uL Absolute Basophils 0.08 (0.0-0.2) 10^3/uL RBC Morphology Normal VBG Lactate 1.7 (<or=2.0) mmol/L Sodium 141 (136-145) mmol/L Potassium 3.8 (3.5-5.1) mmol/L Chloride 107 (98-107) mmol/L Carbon Dioxide 28.3 (21.0-32.0) mmol/L Anion Gap 5.7 (3-11) mmol/L BUN 12 (7-18) mg/dL Creatinine 1.1 (0.70-1.30) mg/dL Est GFR (CKD-EPI 2020) 85.95 (mL/min/1.73m2) Glucose 140 H (74-106) mg/dL Calcium 9.3 (8.5-10.1) mg/dL Total Bilirubin 0.35 (0.2-1.0) mg/dL AST 9 L (15-37) U/L ALT 43 (16-63) U/L Alkaline Phosphatase 85 (46-116) U/L C-Reactive Protein 5.17 H (<or=0.5) mg/dL Total Protein 7.3 (6.4-8.2) g/dL Albumin 4.0 (3.4-5.0) g/dL COVID-19 Source Nasopharynx SARS-CoV-2 (PCR) Negative (Negative) Influenza Type A (PCR) Negative (Negative) Influenza Type B (PCR) Negative (Negative) RSV (PCR) Negative (Negative) 09/18/24 22:38 Blood Culture - Pending Blood 09/18/24 18:48 Blood Culture - Pending Blood Intake and Output - 24 Hour Total 09/18/24 18:25 thru 09/19/24 00:25 Intake Total 1760 Output Total 1000 Balance 760 Weight 88.451 kg Intake: IV 1760 Output: Urine 1000 Other: Urine Color Pale Yellow Urine Appearance Clear Emesis Description None Urinary Catheter Urinary Catheter Date of 09/18/24 Insertion [Urethral (Escoto)] Time of insertion [Urethral ( 23:10 [place])] Falls Risk Assessment History of Falls No History 09/19/24 00:39 Contributing Factors No Factors 09/19/24 00:39 Ambulatory Aids Independent 09/19/24 00:39 Tubes/Lines None 09/19/24 00:39 Gait Evaluation No gait disturbance 09/19/24 00:39 Cognition No cognitive impairment 09/18/24 18:52 Fall Total Score 0 09/19/24 00:39 Level of Risk Standard/Low Risk 09/19/24 00:39 Problems (Last Reviewed 10/20/20 @ 12:07 by Johnna Whyte NP) Acute appendicitis (Acute) v v v v v v v v v Sending and/or Receiving Nurses: Please use comment section below to note any information pertinent to the patient hand-off not included above. Information / Comments: Bedside report given. 3 lap sites, 2 bandaids 1 mepilex dressing. EBL 25mL Report received from: Ami RUVALCAABU RN
[2024-09-19] MEDS: Lactated Ringers 1,000 ML 75 ML IV (04:06)
--- NOTE | 2024-09-19 08:33 | W.PM.DS.N ---
Date of service: 09/19/24 Time of Service: 08:33 DS: Diagnosis Discharge Diagnosis (1) Acute appendicitis: Status: Acute Asessment and Plan: Stable status post appendectomy for acute, nonperforated appendicitis. Patient is comfortable and ready for discharge and will follow up in about 2 weeks. Discharge Plan Disposition Patient Disposition: Home Condition: Good Discharge Details Reason For Visit: Appendicitis ? Admit Date/Time: 09/19/24 00:07 Admit Provider: Jc Garner Attending Provider: Jc Garner Primary Care Provider: [facility] Course Hospital Course: Patient was taken to the operating room for a laparoscopic appendectomy with the finding of acute nonperforated appendicitis on 09/18/2024. He was admitted overnight for observation and on postop day 1 is doing well, tolerating a regular diet, no complaints of chest pain or shortness of breath, passing flatus, comfortable with just Tylenol for pain, ready for discharge. Home Meds and New Rx's Prescriptions: Continued amitriptyline 25 mg tablet 25 mg PO DAILY Patient Comments: TAKE ONE TABLET BY MOUTH AT BEDTIME sertraline 100 mg tablet 200 mg PO DAILY Patient Comments: TAKE TWO TABLETS BY MOUTH EVERY DAY Discharge Instructions Additional Instructions: Discharge Diagnosis: Acute appendicitis You should take your temperature 2 times a day and call if it is greater than 101 ?F. If you have increasing pain, especially with associated nausea or vomiting you should contact the office. If you notice signs of wound infection such as redness or drainage, contact the office. you may resume your previous diet. You may shower tomorrow. Change the Band-Aids after showering. Apply bacitracin or other clear antibiotic ointment to the wounds as well. No tub soaks or swimming for 2 weeks, or until the wounds have completely healed. Leave the Mepilex dressing on the mid abdominal site for 3 days and then change that 1 to a Band-Aid. Do not lift greater than 15 pounds for [address] you feel safe to do so, but not in the next 5 days. You may experience constipation so I recommend that you start taking stool softeners twice daily immediately. If you do not move your bowels in 2 to 3 days, take milk of magnesia. For discomfort you may take extra strength Tylenol every 6 hours. You may alternate this with [id number] ibuprofen so that you are taking something every 3 hours, but remember to take ibuprofen with food. Referrals: Jc Garner MD [ [facility]FF [facility]YSICIAN] - (2 weeks) Activity:: as above Equipment/Supplies:: No Equipment Needed Diet:: As Tolerated Discharge Orders Discharge Orders: Discharge Order (Routine); Ordered 09/19/24 Ordered By: Sandrine Weaver DS: Summary Time Spent with Patient providing and/or coordinating discharge services: Less than 30 minutes Status at Discharge Functional status at discharge: independent ambulation Overall status at discharge: patient is progressing back to baseline Mental Status: mental status grossly normal Speech and Movement: speech and movement normal Mood: congruent mood Affect: normal affect Quality:SDOH Health Related Social Needs: Health related social needs feeling lonely/isolated (Z60.8) Exam Narrative Exam Narrative: Alert male sitting up in bed, comfortable Const General: cooperative Nutritional Appearance: well nourished Orientation: alert and oriented x3 Resp Auscultation: clear to auscultation bilaterally Cardio Rate: regular rate and not tachycardic Rhythm: regular rhythm GI Inspection: normal to inspection Auscultation: normal bowel sounds Other: Dressings dry and intact Psych Mental Status: mental status grossly normal Speech and Movement: speech and movement normal Mood: congruent mood Affect: normal affect Attitude: cooperative Thought Process: normal Insight: insight good DS: Data Vitals/I&O Vitals and I&O: Vital Signs Temperature 32.4 C L 09/19/24 08:19 Temperature Source Temporal Artery Scan 09/19/24 08:19 Pulse 93 H 09/19/24 08:19 Pulse Rhythm Regular 09/19/24 00:39 Pulse 90 09/18/24 22:31 Respiratory Rate 15 09/19/24 08:19 Respiratory Effort Normal, Non-Labored 09/19/24 00:39 Respiratory Depth Normal 09/19/24 00:39 Respiratory Pattern Normal 09/19/24 00:39 Blood Pressure 117/78 09/19/24 08:19 Blood Pressure Mean 80 09/18/24 22:30 Blood Pressure Position Sitting 09/18/24 18:31 Pulse Oximetry 95 09/19/24 08:19 Respiratory End-tidal CO2 32 09/19/24 00:25 Oxygen Delivery Method Room Air 09/19/24 08:19 Oxygen Flow Rate 0 09/19/24 08:19 Pain Level 4 02/13/25 08:19 Intake & Output 09/18/24 09/18/24 09/19/24 11:59 23:59 11:59 Intake Total 1760 / 1760 312.5 / 312.5 Output Total 1000 / 1000 Balance 760 / 760 312.5 / 312.5 Weight 88.451 kg Intake: IV 1760 / 1760 312.5 / 312.5 Output: Urine 1000 / 1000 Other: Urine Color Pale Yellow Urine Appearance Clear Emesis Description None Data Completed and Pending Pending studies at discharge: Pathology report Labs on day of discharge: Labs from last 24 hours 09/18/24 09/18/24 18:48 18:45 WBC 7.58 RBC 4.97 Hgb 14.2 Hct 43.2 MCV 87 MCH 28.6 MCHC 32.9 RDW 12.5 Plt Count 125 L MPV Immature Gran % 0.0 Neutrophils % 73.0 Band Neutrophils % 1 Lymphocytes % 13.0 Atypical Lymphs % 2 Monocytes % 9.0 Eosinophils % 1.0 Basophils % 1.0 Nucleated RBC % 0.0 Absolute Neutrophils 5.61 Absolute Lymphocytes 1.14 L Absolute Monocytes 0.68 Absolute Eosinophils 0.08 Absolute Basophils 0.08 RBC Morphology Normal VBG Lactate 1.7 Sodium 141 Potassium 3.8 Chloride 107 Carbon Dioxide 28.3 Anion Gap 5.7 BUN 12 Creatinine 1.1 Est GFR (CKD-EPI 2020) 85.95 Glucose 140 H Calcium 9.3 Total Bilirubin 0.35 AST 9 L ALT 43 Alkaline Phosphatase 85 C-Reactive Protein 5.17 H Total Protein 7.3 Albumin 4.0 COVID-19 Source Nasopharynx SARS-CoV-2 (PCR) Negative Influenza Type A (PCR) Negative Influenza Type B (PCR) Negative RSV (PCR) Negative 09/18/24 22:38 Blood Blood Culture - Pending 09/18/24 18:48 Blood Blood Culture - Pending Preliminary micro results at discharge 09/18/24 22:38 Blood Culture - Pending Blood 09/18/24 18:48 Blood Culture - Pending Blood [facility] All Active Problems Acute appendicitis (Acute) Chest pain (Acute) Surgical History (Updated 09/19/24 @ 08:37 by Cristiana Ha) S/P laparoscopic appendectomy (~09/18/24) Social History Smoking/Tobacco Use Status: Never Smoking risk assessment performed?: Yes Alcohol Intake: current Alcohol Intake frequency: a few times a week Substance use type: does not use Housing: house Do you feel safe at home: Yes Do you feel safe in your relationship?: Yes Time Spent with Patient Time Spent with Patient: <45 minutes Time was spent: preparing to see the patient(eg.review tests) and counseling the patient
[2024-09-19] MEDS: Psyllium PKT 1 EACH PO (09:13)
[2024-09-19] MEDS: Enoxaparin 40 MG/0.4 ML SYR SC (09:13)
[2024-09-19] MEDS: Normal Saline Flush 10 ML SYR IVP (09:15)
--- NOTE | 2024-09-19 09:53 | CMPROGNOTE_ITS ---
Date of service: 09/19/24 Time of Service: 09:54 Care Management Progress Note Progress Note Text Progress Note Text: Genesis was admitted yesterday with acute appendicitis. He underwent a laparoscopic appendectomy and did well post-operatively. He was discharged home this morning with no new services. Genesis will follow up with his surgeon in about 2 weeks. Discharge Potential Discharge Needs: Surgical F/U Appt Anticipated Barriers to Discharge: None Identified Patient/Family Education Needs: Review discharge instructions, discuss Ask Me Three Transportation: Private vehicle Social Determinants of Health Screening Social Determinants of Health last assessed: 09/19/24 Will the Patient Participate in the Screening?: Yes Do you worry about having a steady place to live?: no Problems where you live: no known problems In the past 12 months, have you had to go without electric, gas, oil or water in your home?: no Have you or anyone in your house had to go without enough food to eat?: no Has lack of transportation kept you from medical appointments or from doing things needed for daily living?: no Has anyone in your life made you feel unsafe or unsupported?: no How hard is it for you to pay for the very basics like food, housing, medical care, and heating? Would you say it is:: Not hard at all Do you want help finding or keeping work or a job?: I do not need or want help If for any reason you need help with day-to-day activities such as bathing, preparing meals, shopping, managing finances, etc., do you get the help you need?: I don?t need any help How often do you feel lonely or isolated from those around you?: Rarely Do you speak a language other than Croatian at home?: No Does the patient want assistance with any of the above?: No Social Determinants of Health Comments(SDMT Details): going through divorce Health Related Social Needs Health related social needs: feeling lonely/isolated (Z60.8)
== END 2024-09-19 10:00 | disposition home or self-care (01) ==
LOC: ER 20:10 → DSU 22:48 → MS 09-19 00:44
PROVIDERS: Admitting Provider Surgery; Emergency Provider Physician Assistant; PCP Family Medicine; Responsible Provider Surgery; Visit Provider Surgery
PROC: 0DTJ4ZZ Resection of Appendix, Percutaneous Endoscopic Approach (ICD-10-PCS; CPT 44970; principal; 2024-09-18 22:30)
DX: K35.33 Acute appendicitis with perforation, localized peritonitis, and gangrene, with abscess (principal); R11.0 Nausea; R00.0 Tachycardia, unspecified
CPT/HCPCS: 44970; 36415; 80053; 87040; 87637; 93005; 96361; 96365; 96367; 96372; 99223; 99285; J1650; 74177; 83605; 85025; 86140; 88304; 93010; J0131; J1100; J1885; J2003; J2250; J2371; J2405; J2543; J2704; J3010; J3490